=== PATIENT | female | born 1950 | race Caucasian/White ===

== ENCOUNTER 2019-08-31 09:41 | Emergency (ER) | payer MEDICARE, OTHER ==
[2019-08-31] MEDS ORDERED: Famotidine/PF 20 mg/2ml Vial ONE (09:52)
[2019-08-31] MEDS ORDERED: diphenhydrAMINE 50 MG/ML VIAL ONE (09:52)
[2019-08-31] MEDS ORDERED: methylPREDNISolone Sod Succ/PF 125 MG/2 ML VIAL ONE (09:52)
[2019-08-31] MEDS ORDERED: Acetaminophen 500 MG TAB ONE (10:52)
== END 2019-08-31 12:21 | disposition home or self-care (01) ==
LOC: ERS 09:41
DX: T78.40XA Allergy, unspecified, initial encounter (principal); E11.9 Type 2 diabetes mellitus without complications; Z79.84 Long term (current) use of oral hypoglycemic drugs; Z79.899 Other long term (current) drug therapy
CPT/HCPCS: 96374; 96375; J1200; J2930; S0028

== ENCOUNTER 2020-10-11 08:07 | Outpatient (CLI) | payer MEDICARE | END 2020-10-11 08:08 | disposition home or self-care (01) | LOC: BICMAMMO 08:07 | PROVIDERS: ATTEND Internal Medicine | DX: N63.10 Unspecified lump in the right breast, unspecified quadrant (principal) | CPT/HCPCS: 76642; 77065; G0279 ==

== ENCOUNTER 2024-09-30 06:02 | Day surgery (SDC) | payer OTHER, MEDICARE ==
[2024-09-22 09:55] VITALS: BMI 30.9
[~2024-09-30 06:02] MED LIST: EPINEPHrine 0.3 MG in Ophthalmic Irrigation Solution 500 ML IRR SCH
[2024-09-30] MEDS ORDERED: Cyclopentolate 1% Opth Drop 2 ML BOT ONE (06:39)
[2024-09-30] MEDS ORDERED: PROPOFOL 20 ML ONE (06:53)
[2024-09-30] MEDS ORDERED: Lidocaine 1% PF 5 ML VIAL ONE (06:54)
[2024-09-30 07:24] LABS: Anion Gap 14 mmol/L (10-20); BUN (Urea Nitrogen) 12 mg/dL (9.8-20.1); Calc. Creatinine Clearance 54 mL/min (70-130); Calcium 9.1 mg/dL (7.8-10.44); Carbon Dioxide 24 mmol/L (23-31); Chloride 106 mmol/L (98-107); Glucose 160 mg/dL (83-110); Potassium 4.8 mmol/L (3.5-5.1); Sodium 139 mmol/L (136-145)
[2024-09-30] MEDS ORDERED: Maxitrol 0.1% Opth Oint 3.5 GM TUBE ONE (07:37)
[2024-09-30] MEDS ORDERED: Lidocaine 4% PF 5 ML AMP ONE (07:37)
[2024-09-30] MEDS ORDERED: CEFAZOLIN 1 GM VIAL ONE (07:37)
== END 2024-09-30 09:40 | disposition home or self-care (01) ==
LOC: SDC 06:02
PROVIDERS: ATTEND Ophthalmology Retina Specialist
PROC: 08B53ZZ Excision of Left Vitreous, Percutaneous Approach (ICD-10-PCS; principal; 2024-09-30)
DX: H35.372 Puckering of macula, left eye (principal); E11.9 Type 2 diabetes mellitus without complications; Z79.85 Long-term (current) use of injectable non-insulin antidiabetic drugs; Z88.5 Allergy status to narcotic agent
CPT/HCPCS: 67042; 80048; 82962; J0171; J0690; J2250; J2704; J3010; J3301; J3490; 36416; 93005; 93010